=== PATIENT | male | born 2000 | race Caucasian/White ===

== ENCOUNTER → 2021-03-04 08:34 | Outpatient (CLI) | payer OTHER, SELFPAY | PROVIDERS: Visit Provider Family Medicine | DX: Z23 Encounter for immunization (principal) ==

== ENCOUNTER 2021-11-23 11:46 | Emergency (ER) | payer OTHER, SELFPAY ==
[2021-11-23 11:50] VITALS: BP 104/63; PULSE 101; RESP 14; TEMP 36.8; O2SAT 100; BMI 18.3
--- NOTE | 2021-11-23 12:26 | EDS_ITS ---
HPI History of Present Illness Chief Complaint: Seizure Informant: patient Onset/Context/Timing Onset: Today Context: Sudden Onset Timing: Intermittent Quality: Lightheaded Location: Generalized Worsened by: Nothing Relieved by: Putting his head against the wall Narrative Narrative: Patient presents with near syncopal episode that occurred today. Patient states he was getting into the shower when he felt lightheaded. Patient admits to some blurry vision. Patient also admits to some tinnitus when this occurred. Patient denies any loss of consciousness. Patient states he was alert during the whole time. Patient states the symptoms lasted approximately 5 minutes. Patient admits to a mild headache. Patient states he felt like his heart was racing. Patient states his symptoms got better when he put his head against the wall. Patient went to the wellness center at the [facility] and then was referred to the emergency department. [facility] Medical History (Updated 11/23/21 @ 14:[address] Tomasz Pleitez DO) ADHD Medical History no medical history Home Medications methylphenidate HCl 36 mg tablet,extended release 24 hr (Concerta) 36 mg PO DAILY 11/23/21 [History Last Taken Unknown] Allergy/AdvReac Type Severity Reaction Status Date / Time amphetamine [From Adderall] AdvReac Other Verified 11/23/21 11:47 dextroamphetamine AdvReac Other Verified 11/23/21 11:47 [From Adderall] Surgical History no surgical history no surgical history Social History Smoking Status: Never smoker ROS ROS ED Constitutional Constitutional ED: Denies chills or fever(s) Eyes Eyes: Reports blurry vision and change in vision ENT ENT ED: Denies rhinorrhea or sore throat Cardiovascular Cardiovascular: Reports racing heartbeat; Denies chest pain Respiratory/Chest Respiratory/Chest: Denies cough or dyspnea Gastrointestinal Gastrointestinal: Denies nausea or vomiting Genitourinary Genitourinary ED: Denies dysuria or hematuria Musculoskeletal Musculoskeletal: Denies back pain or neck pain Integumentary Reports rash; Denies abscess Neurologic Neurologic: Reports headache(s); Denies weakness Allergic/Immunologic Allergic/Immunologic ED: Denies mouth swelling or urticaria EXAM Physical Exam Const Vital Signs: 11/23/21 11:50 11/23/21 14:17 Temperature 98.2 F Temperature Source Temporal Pulse Rate 101 H 90 Respiratory Rate 14 18 Blood Pressure 104/63 Blood Pressure Mean 76 Pulse Ox 100 100 Oxygen Delivery Method Room Air Room Air Positive well nourished and well developed General Appearance ED: well developed and NAD HEENT Reports moist mucous membranes Neck supple and no JVD Resp normal respiratory effort and clear to auscultation bilaterally Cardio regular rate, regular rhythm and no murmurs GI normal to inspection, nondistended, normoactive bowel sounds and non-tender Palpation: soft Extremity normal to inspection General Extremety ED: Negative for edema or tenderness General Extremity: Negative for edema Neuro oriented x3, CN's II-XII intact bilaterally and no sensory deficits noted Sensorium / Orientation: alert Motor Exam: strength 5/5 throughout Psych mental status grossly normal MDM MDM MDM Narrative Medical decision making narrative: CBC shows a slight leukocytosis of 12.0. Comprehensive metabolic profile was within normal limits. Urinalysis does not show any evidence of urinary tract infection. There is no hematuria. High-sensitivity troponin was normal. CT scan of the brain was obtained. There is no acute intracranial abnormality. This was interpreted by the radiologist and reviewed by myself. PA and lateral chest x-ray was obtained. There are 2 views. On my interpretation, lung chavez are clear. There is normal cardiac silhouette. Bony thorax is normal. There is no acute process noted. Radiologist also interpreted the x-ray and agrees. Patient was advised of his findings. Patient is at low risk for syncopal event. Patient was advised of his findings. Patient was instructed to follow-up with a primary care physician in 5 to 7 days for further evaluation. Patient understood and was agreeable with the plan. All questions were answered. Lab Data Attestation: I reviewed the patient's lab results. Labs: Laboratory Results - last 24 hr 11/23/21 11/23/21 11/23/21 12:43 12:59 12:59 WBC 12.0 H RBC 5.21 Hgb 15.2 Hct 46.0 MCV 88.3 MCH 29.2 MCHC 33.0 RDW Std Deviation 39.8 RDW Coeff of Rafiq 12.3 Plt Count 279 MPV 9.6 Immature Gran % (Auto) 0.500 Neut % (Auto) 83.5 H Lymph % (Auto) 9.7 L [place] % (Auto) 6.1 Eos % (Auto) 0.1 Baso % (Auto) 0.1 Absolute Neuts (auto) 10.1 H Absolute Lymphs (auto) 1.17 Nucleated RBC % 0 Sodium 138 Potassium 4.2 Chloride 105 Carbon Dioxide 28.0 Anion Gap 5 BUN 8 Creatinine 0.89 Estim Creat Clear Calc 114.39 Est GFR (MDRD) Af Amer 138 Est GFR (MDRD) Non-Af 114 BUN/Creatinine Ratio 8.9 L Glucose 101 Calcium 8.9 Total Bilirubin 0.50 AST 13 L ALT 18 Alkaline Phosphatase 84 Troponin I High Sens 6 Total Protein 7.2 Albumin 3.9 Globulin 3.3 Albumin/Globulin Ratio 1.2 Urine Color Yellow Urine Clarity Sl. Cloudy Urine pH 6.5 Ur Specific [place] 1.015 Urine Protein 30 H Urine Glucose (UA) Normal Urine Ketones 5 H Urine Occult Blood 10 H Urine Nitrite Negative Urine Bilirubin Negative Urine Urobilinogen 1 H Ur Leukocyte Esterase 100 H Urine RBC 0 SEEN Urine WBC 0-5 SEEN Ur Squamous Epith Cells 0 SEEN Urine Bacteria 0 SEEN Hyaline Casts 0-5 SEEN Urine Mucus 1+ Radiography Chest X-Ray - ED: 2 View, Read by ED Physician, Read by Radiologist, Normal and No Acute Disease Diagnostic Testing: Clinical Impression(s) from Imaging Studies Brain CT 11/23/21 12:30 IMPRESSION: Brain normal. Moderate acute right maxillary sinusitis. Electronically Signed: Abiodun Rawls MD, JD at 13:22 EDT , Chest X-Ray 11/23/21 13:10 IMPRESSION: Normal x-ray examination of the chest. Electronically Signed: Abiodun Rawls MD, JD at 13:26 EDT , Discharge Plan Triage Chief Complaint: Seizure ED Provider: Tomasz Pleitez Dx/Rx/DC Orders Clinical Impression: Near syncope, Dizziness Instructions: ED Near-Fainting, Uncertain Cause Prescriptions: No Action methylphenidate HCl [Concerta] 36 mg tablet extended release 24hr 36 mg PO DAILY Primary Care Provider: KODI CRUZ Referrals: KODI CRUZ [Other] - 5-7 Days Shaheen Patricio MD [Med Staff - Court Operations Clerk] - 5-7 Days Disposition Disposition: Home, Self Care
--- NOTE | 2021-11-23 12:30 | CT_ITS ---
STUDY: CT BRAIN WITHOUT CONTRAST REASON FOR EXAM: Male, 21 years old. Syncope RADIATION DOSAGE (If Supplied By Facility): CTDIvol = ( 44.99 ) mGy, DLP = ( 812.98 ) mGycm TECHNIQUE: Transaxial CT imaging of the brain was performed without administration of intravenous contrast material. Individualized dose optimization techniques were used for this CT. COMPARISON: No relevant priors. FINDINGS: Normal soft tissue structures. Normal calvarium. Normal size ventricles and extra-axial spaces for the patient''s age. Normal white matter tracts of the cerebral hemispheres. Normal basal ganglia and thalami. Normal brainstem. Normal cerebellum. There is no intracranial hemorrhage. There are no findings of an acute ischemic infarction. Normal moderate fluid right maxillary sinus consistent with acute sinusitis. Visualized paranasal sinuses. Moderate mucosal thickening CT/Brain/Head without Contrast IMPRESSION: Brain normal. Moderate acute right maxillary sinusitis. Electronically Signed: Abiodun Rawls MD, MOHIT at 13:22 EDT ,
[2021-11-23] MEDS: 0.9% Normal Saline 1,000 ML 1000 ML IV (12:58)
[2021-11-23 13:05] LABS: Bacteria 0 SEEN /hpf (None Seen); Red Blood Cells-Urine 0 SEEN /hpf (0-5); Squamous Epithelial Cells - UA 0 SEEN /hpf (0-5)
[2021-11-23 13:08] LABS: Absolute Lymphocyte Count 1.17 X10^3/uL (0.83-4.51); Absolute Neutrophil Count 10.1 X10^3/uL (2.0-7.7); Basophil# 0.01 X10^3/uL; Basophil% 0.1 % (0-1); Eosinophil# 0.01 X10^3/uL; Eosinophils% 0.1 % (0-5); Hemoglobin 15.2 g/dL (13.0-16.5); Lymphocyte # 1.17 X10^3/ul (0.83-4.51); Lymphocyte % 9.7 % (19-41); Mean Corpuscular Hgb 29.2 pg (27.0-32.0); Mean Corpuscular Volume 88.3 fL (80-94); Mean Platelet Vol. 9.6 fl (6.2-12.0); Monocyte# 0.73 X10^3/uL; Monocyte% 6.1 % (0-10); NRBC Flagged by Analyzer 0 % (0-5); Neutrophil # 10.05 X10^3/uL (2.7-7.7); Neutrophil % 83.5 % (47-70); Platelet Count 279 K/mm3 (150-450); RBC Distribution Width CV 12.3 % (11.6-14.6); RBC Distribution Width SD 39.8 fl (35.1-43.9); Red Blood Count 5.21 M/mm3 (4.6-6.2)
[2021-11-23 13:09] LABS: Color, Urine Yellow (Yellow); Glucose, Dipstick Normal (Normal); Ketone-Dipstick 5 mg/dl (Negative); Leukocyte Esterase-Dipstick 100 /ul (Negative); Nitrite-Dipstick Negative (Negative); Occult Blood-Urine 10 /ul (Negative); Protein-Dipstick 30 mg/dl (Negative); Specific Gravity, Urine 1.015 (1.002-1.030); Urine Bilirubin Dipstick Negative (Negative); Urine Clarity Sl. Cloudy (Clear); Urine Urobilinogen 1 mg/dl (Normal); Urine pH 6.5 (5.0 - 8.0)
--- NOTE | 2021-11-23 13:10 | RAD_ITS ---
STUDY: X-RAY CHEST REASON FOR EXAM: Male, 21 years old. Syncope TECHNIQUE: Chest PA and lateral COMPARISON: None. FINDINGS: The lungs are clear and expanded. There is no demonstrated pleural abnormality. Normal size heart. Normal mediastinum and jesus. Normal visualized pulmonary arteries. Normal visualized aortic arch and descending thoracic aorta. Normal visualized thoracic spine. Normal visualized ribs, clavicles, and shoulders. There is no demonstrated abnormality of the visualized soft tissue structures of the upper abdomen. RAD/Chest PA and Lateral IMPRESSION: Normal x-ray examination of the chest. Electronically Signed: Abiodun Rawls MD, MOHIT at 13:26 EDT ,
[2021-11-23 13:15] LABS: Hyaline Cast 0-5 SEEN /lpf (0-5); Mucous, Urine 1+ /hpf (<or=2+); White Blood Cells 0-5 SEEN /hpf (0-5)
[2021-11-23 13:30] LABS: ALB/GLOB Ratio 1.2 RATIO (0.9-2.4); AST(SGOT) 13 U/L (15-37); Alanine Aminotransfer ALT/SGPT 18 U/L (16-61); Albumin, Serum 3.9 g/dL (3.2-5.0); Alkaline Phosphatase 84 U/L (45-117); Anion Gap 5 (5-15); BUN 8 mg/dL (7-18); BUN/Creat Ratio 8.9 RATIO (10-20); Calcium,Total 8.9 mg/dL (8.5-10.1); Chloride 105 mmol/L (98-107); Creatinine, Serum 0.89 mg/dL (0.70-1.30); EST Glomerular Filtration Rate 114 mL/min (>60); Est Glom Filt Rate - Afr Amer 138 mL/min (>60); Estimated Creatinine Clearance 114.39 ml/min; Globulin 3.3 g/dL (2.2-4.2); Glucose 101 mg/dL (74-106); Potassium 4.2 mmol/L (3.5-5.1); Protein, Total 7.2 g/dL (6.4-8.2); Sodium Level 138 mmol/L (136-145); Troponin-I HS (w/2H Reflex) 6 pg/mL (3.0-78.0)
[2021-11-23 14:17] VITALS: PULSE 90; RESP 18; O2SAT 100
[2021-11-23 14:55] VITALS: BP 136/74; PULSE 75; RESP 18; O2SAT 98
[2021-11-23 15:03] LABS: Reflex Troponin-HS? (from REC) Y
== END 2021-11-23 14:55 | disposition home or self-care (01) ==
PROVIDERS: Emergency Provider Emergency Medicine; Visit Provider Emergency Medicine
DX: R55 Syncope and collapse (principal); F90.9 Attention-deficit hyperactivity disorder, unspecified type; Z79.899 Other long term (current) drug therapy
CPT/HCPCS: 70450; 71046; 80053; 81001; 84484; 85025; 96360; 96361; 99282; J7030; A4216